=== PATIENT | male | born 1970 | race Caucasian/White ===

== ENCOUNTER → 2021-06-08 13:57 | Outpatient (CLI) | payer MEDICAID, SELFPAY ==
[2021-06-08 14:00] LABS: Adenovirus,PCR Not Detected (NotDetected); Coronavirus 229E Not Detected (NotDetected); Coronavirus NL63 Not Detected (NotDetected); Coronavirus OC43 Not Detected (NotDetected); Coronovirus HKU1,PCR Not Detected (NotDetected); Human Metapneumovirus Not Detected (NotDetected); Influenza A, PCR Not Detected (NotDetected); Influenza AH1, 2009 Not Detected (NotDetected); Influenza AH1, PCR Not Detected (NotDetected); Influenza AH3,PCR Not Detected (NotDetected); Influenza B, PCR Not Detected (NotDetected); Parainfluenza 1, PCR Not Detected (NotDetected); Parainfluenza 2, PCR Not Detected (NotDetected); Rhinovirus/Enterovirus Not Detected (NotDetected)
[2021-06-08 16:38] LABS: Coronavirus 19, PCR Detected (NotDetected); Influenza A, PCR Not Detected (NotDetected); Influenza B, PCR Not Detected (NotDetected)
[2021-06-09 02:12] LABS: Bordetella Pertussis Not Detected (NotDetected); Chlamydophila Pneumoniae, PCR Not Detected (NotDetected); Mycoplasma Pneumoniae, PCR Not Detected (NotDetected); Parainfluenza 3, PCR Not Detected (NotDetected); Parainfluenza 4, PCR Not Detected (NotDetected); Respiratory Syncytial Virus Not Detected (NotDetected)
== END ==
PROVIDERS: Visit Provider Family Medicine
DX: Z20.822 Contact with and (suspected) exposure to COVID-19 (principal); U07.1 COVID-19
CPT/HCPCS: 87486; 87581; 87632; 87798; C9803; U0003; U0005

== ENCOUNTER → 2022-04-02 12:15 | Outpatient (CLI) | payer MEDICAID, SELFPAY | PROVIDERS: PCP Family Medicine; Visit Provider Surgery | DX: U07.1 COVID-19 (principal) | CPT/HCPCS: C9803; U0003; U0005 ==

== ENCOUNTER 2022-04-25 06:27 | Day surgery (SDC) | payer MEDICAID, SELFPAY ==
--- NOTE | 2022-04-25 07:03 | SUR.PREOP ---
Procedure cancelled per Dr Hwang. Pt to f/u with dermatology per his recommendation.
== END 2022-04-25 06:35 | disposition home or self-care (01) ==
LOC: OUTP 06:28
PROVIDERS: PCP Family Medicine; Visit Provider Surgery
PROC: (CPT 11104; principal; 2022-04-25 07:30)
DX: Z53.9 Procedure and treatment not carried out, unspecified reason (principal); D48.5 Neoplasm of uncertain behavior of skin
CPT/HCPCS: 11104

== ENCOUNTER 2024-04-09 09:28 | Outpatient (CLI) | payer MEDICAID, SELFPAY ==
[2024-04-09 18:34] LABS: Basophils # 0.1 K/mm3 (0-0.2); Basophils % 0.8 % (0.1-2.0); Eosinophils # 0.1 K/mm3 (0.0-0.4); Eosinophils % 1.5 % (0.1-12.0); Hematocrit 53.8 % (42.0-52.0); Hemoglobin 17.6 g/dL (14.1-18.0); Mean Corpuscular HGB Conc 32.7 g/dL (31.8-35.4); Mean Corpuscular Hemoglobin 31.3 pg (27.0-31.2); Mean Corpuscular Volume 95.8 fl (80-94); Mean Platelet Volume 10.3 fl (7.4-10.4); Monocytes # 0.4 K/mm3 (0.1-1.0); Monocytes % 6.5 % (1.7-9.3); Neutrophils # 3.4 K/mm3 (1.8-7.8); Neutrophils % 57.3 % (37.0-80.0); Platelet Count 228 K/mm3 (142-424); Red Blood Count 5.61 M/mm3 (4.60-6.20); White Blood Count 5.9 K/mm3 (4.8-10.8)
[2024-04-09 20:48] LABS: Alanine Aminotransferase 24 U/L (12-78); Albumin Level 4.2 g/dl (3.5-5.0); Albumin/Globulin Ratio 1.3 (1.1-1.8); Alkaline Phosphatase 95 U/L (38-126); Anion Gap 10.2 mEq/L (5-15); Aspartate Amino Transferase 24 U/L (17-59); Bilirubin,Total 0.5 mg/dl (0.2-1.3); Blood Urea Nitrogen 20 mg/dl (9-20); Calcium 9.6 mg/dl (8.4-10.2); Carbon Dioxide 26 mmol/L (22.0-30.0); Chloride 108 mmol/L (98-107); Chol/HDL Ratio 8.4 (1-3.5); Cholesterol 268 mg/dl (140-200); Estimated Glomerular Filt Rate 77 ml/min (>60); GFR (African American) 94 ML/MIN (>60); Globulin 3.2 g/dL (1.3-3.2); Glucose 91 mg/dl (74-100); HDL Cholesterol 32 mg/dl (40-60); Potassium 5.2 mmoL/L (3.5-5.1); Sodium 139 mmol/L (136-145); Total Protein,Serum 7.4 g/dl (6.3-8.2); Triglycerides 374 mg/dl (30-150); VLDL Cholesterol 75 mg/dL (0-40)
[2024-04-09 20:59] LABS: Direct LDL Cholesterol 127.14 mg/dL (100-129)
[2024-04-09 21:20] LABS: Prostate Specific Ag Screen 1.1 ng/ml (0.0-4.0)
== END 2024-04-09 23:59 | disposition home or self-care (01) ==
LOC: LAB.DROPOF 04-10 09:07
PROVIDERS: PCP Family Medicine; Visit Provider Family Medicine
DX: M54.9 Dorsalgia, unspecified (principal); G89.29 Other chronic pain
CPT/HCPCS: 80053; 80061; 85025; G0103

== ENCOUNTER 2024-11-02 10:09 | Outpatient (CLI) | payer MEDICAID, SELFPAY ==
[2024-11-02 20:20] LABS: Basophils % 0.6 % (0.1-2.0); Eosinophils # 0.1 K/mm3 (0.0-0.4); Eosinophils % 1.3 % (0.1-12.0); Hematocrit 47.6 % (42.0-52.0); Hemoglobin 16.1 g/dL (14.1-18.0); Lymphocytes # 1.8 K/mm3 (0.7-4.5); Lymphocytes % 29.1 % (10-50); Mean Corpuscular HGB Conc 33.8 g/dL (31.8-35.4); Mean Corpuscular Hemoglobin 29.8 pg (27.0-31.2); Mean Platelet Volume 11.5 fl (7.4-10.4); Monocytes # 0.4 K/mm3 (0.1-1.0); Monocytes % 7.1 % (1.7-9.3); Neutrophils # 3.8 K/mm3 (1.8-7.8); Neutrophils % 61.6 % (37.0-80.0); Platelet Count 262 K/mm3 (142-424); Red Blood Count 5.41 M/mm3 (4.60-6.20); Red Cell Distribution Width 12.5 % (11.5-17.5); White Blood Count 6.2 K/mm3 (4.8-10.8)
[2024-11-02 21:07] LABS: Albumin Level 4.5 g/dl (3.5-5.0); Chloride 105 mmol/L (98-107); Sodium 139 mmol/L (136-145)
[2024-11-02 21:08] LABS: Potassium 4.3 mmoL/L (3.5-5.1)
[2024-11-02 21:10] LABS: Alanine Aminotransferase 34 U/L (12-78); Albumin/Globulin Ratio 1.9 (1.1-1.8); Alkaline Phosphatase 107 U/L (38-126); Anion Gap 15.3 mEq/L (5-15); Aspartate Amino Transferase 29 U/L (17-59); Bilirubin,Total 0.4 mg/dl (0.2-1.3); Blood Urea Nitrogen 18 mg/dl (9-20); Carbon Dioxide 23 mmol/L (22.0-30.0); Estimated Glomerular Filt Rate 77 ml/min (>60); GFR (African American) 94 ML/MIN (>60); Globulin 2.4 g/dL (1.3-3.2); Total Protein,Serum 6.9 g/dl (6.3-8.2)
[2024-11-02 21:11] LABS: Calcium 9.6 mg/dl (8.4-10.2); Glucose 111 mg/dl (74-100)
[2024-11-02 23:22] LABS: Hemoglobin A1C 5.5 % (4.0-6.0)
== END 2024-11-02 23:59 | disposition home or self-care (01) ==
LOC: LAB.DROPOF 11-03 10:09
PROVIDERS: PCP Nurse Practitioner; Visit Provider Nurse Practitioner
DX: L97.509 Non-pressure chronic ulcer of other part of unspecified foot with unspecified severity (principal); L08.9 Local infection of the skin and subcutaneous tissue, unspecified
CPT/HCPCS: 80053; 83036; 85025

== ENCOUNTER 2024-11-04 12:08 | Outpatient (CLI) | payer MEDICAID, SELFPAY ==
--- NOTE | 2024-11-04 12:11 | XR_ITS ---
FINAL REPORT CLINICAL HISTORY: ulcer of foot FINDINGS: LEFT FOOT Three views were obtained. There is no fracture or dislocation. The joint spaces appear normal. No soft tissue abnormality is identified. IMPRESSION: No acute process. Reviewed, Interpreted and Dictated by Krishna Jc MD Transcribed by Megan Nunez Authenticated and [facility]
--- NOTE | 2024-11-04 12:11 | XR_ITS ---
FINAL REPORT CLINICAL HISTORY: foot pain FINDINGS: RIGHT FOOT Three views were obtained. There is no fracture or dislocation. The joint spaces appear normal. No soft tissue abnormality is identified. IMPRESSION: No acute process. Reviewed, Interpreted and Dictated by Krishna Jc MD Transcribed by Megan Nunez Authenticated and [facility]
== END 2024-11-04 23:59 | disposition home or self-care (01) ==
LOC: RAD 12:09
PROVIDERS: PCP Family Medicine; Visit Provider Nurse Practitioner
DX: M79.671 Pain in right foot (principal); M79.672 Pain in left foot; L97.529 Non-pressure chronic ulcer of other part of left foot with unspecified severity
CPT/HCPCS: 73630

== ENCOUNTER 2024-11-10 09:27 | Outpatient (CLI) | payer MEDICAID, SELFPAY ==
--- NOTE | 2024-11-10 09:33 | US_ITS ---
FINAL REPORT CLINICAL HISTORY: Decreased Pedal Pulses, ulcer on R great toe, claudication COMPARISON: None FINDINGS: ANKLE-BRACHIAL PRESSURE INDICES Pressure indices are as follows: RIGHT LOWER EXTREMITY: Ankle-brachial pressure index: 1.0 Comments: Normal LEFT LOWER EXTREMITY: Ankle-brachial pressure index: 1.0 Comments: Normal CONCLUSION: No evidence of significant obstructive peripheral vascular disease of the lower extremities Reviewed, Interpreted and Dictated by Gerry Avina MD Transcribed by Kylah Washburn Authenticated and . [facility]
== END 2024-11-10 23:59 | disposition home or self-care (01) ==
LOC: RT 09:28
PROVIDERS: PCP Family Medicine; Visit Provider Nurse Practitioner
DX: R09.89 Other specified symptoms and signs involving the circulatory and respiratory systems (principal)
CPT/HCPCS: 93923

== ENCOUNTER 2024-11-17 09:27 | Outpatient (CLI) | payer MEDICAID, SELFPAY ==
[2024-11-17 19:37] LABS: Iron 106 ug/dL (49-181)
[2024-11-17 20:08] LABS: Total Iron Binding Capacity 344 ug/dL (261-462)
[2024-11-17 20:14] LABS: Ferritin 72.3 ng/ml (17.9-464)
[2024-11-17 21:10] LABS: Thyroid Stimulating Hormone 0.76 uIU/mL (0.465-4.68)
[2024-11-17 21:29] LABS: Vitamin B12 270 pg/mL (239-931)
[2024-11-17 21:45] LABS: Folate 9.98 ng/mL
== END 2024-11-17 23:59 | disposition home or self-care (01) ==
LOC: LAB.DROPOF 11-18 10:15
PROVIDERS: PCP Family Medicine; Visit Provider Family Medicine
DX: R20.0 Anesthesia of skin (principal); R20.2 Paresthesia of skin
CPT/HCPCS: 82607; 82728; 82746; 83540; 83550; 84443

== ENCOUNTER 2024-12-09 07:08 | Outpatient (CLI) | payer MEDICAID, SELFPAY ==
--- NOTE | 2024-12-09 07:11 | XR_ITS ---
FINAL REPORT CLINICAL HISTORY: Shortness of breath, history of COVID COMPARISON: None FINDINGS: No acute pulmonary density is evident. There is evidence of old calcified granulomatous disease. There is no evidence of effusion or other pleural disease. The mediastinum has a normal appearance. There are age-indeterminate thoracic compression fractures of T12 and T5. The cardiac silhouette is unremarkable. IMPRESSION: No acute lung disease. Age-indeterminate thoracic compression fractures. If further characterization is needed, recommend MRI. Reviewed, Interpreted and Dictated by Krishna Jc MD Transcribed by Tori Lee Authenticated and [facility]
[2024-12-09 07:31] LABS: Blood Urea Nitrogen 16 mg/dl (9-20); Estimated Glomerular Filt Rate 87 ml/min (>60); GFR (African American) 106 ML/MIN (>60)
[2024-12-09] MEDS: IOPAMIDOL-370 (76%);100ML BOTTLE 120 ML IV (08:22)
[2024-12-09] MEDS: SODIUM CHLORIDE 0.9% 10ML SYR (RAD ONLY) 10 ML IV (08:22)
[2024-12-09] MEDS: 0.9 % SODIUM CHLORIDE 50 ML VIAL 100 ML IV (08:22)
--- NOTE | 2024-12-09 08:45 | CT_ITS ---
FINAL REPORT CLINICAL HISTORY: abnl SLIME COMPARISON: None FINDINGS: CT ABDOMEN, CT PELVIS, CTA ABDOMEN, CTA PELVIS AND CTA LOWER EXTREMITY RUNOFF COMPARISON: None TECHNIQUE: Thin section axial CT with IV contrast supplemented with 3D MIP reconstruction under CT Angiogram protocol This study was performed with techniques to keep radiation doses as low as reasonably achievable, (ALARA). Individualized dose reduction techniques using automated exposure control or adjustment of mA and/or kV according to the patient's size were employed. FINDINGS: CT ABDOMEN AND PELVIS: There is mild fatty infiltration of the liver. The gallbladder is unremarkable. The remaining solid organs are normal. The bowel is unremarkable. In the pelvis, there is no focal mass or free fluid. The appendix is unremarkable in appearance. The bladder and prostate are normal. CT ANGIOGRAM ABDOMEN AND PELVIS: The aorta and iliac vessels are unremarkable in appearance. The renal arteries are normal. The mesenteric arteries are unremarkable as well. CTA RIGHT LOWER EXTREMITY: There is no focal abnormality of the femoral or popliteal arteries. There is three-vessel runoff in the right lower extremity, with the dominant runoff vessel of the peroneal artery. CTA LEFT LOWER EXTREMITY: There is no focal abnormality of the femoral or popliteal arteries. There is three-vessel runoff in the left lower extremity, with the dominant runoff vessel of the anterior tibial artery. IMPRESSION: Mild fatty infiltration of the liver. Otherwise, unremarkable CT of the upper abdomen and pelvis. Bilateral three-vessel runoff without evidence of significant stenosis in the abdominal, pelvic, or lower extremity arterial system. This study was performed using automated techniques to achieve radiation exposure as low as reasonably achievable Reviewed, Interpreted and Dictated by Krishna Jc MD Transcribed by Kylah Washburn Authenticated and [facility]
== END 2024-12-09 23:59 | disposition home or self-care (01) ==
PROVIDERS: PCP Family Medicine; Visit Provider Physician Assistant
DX: I73.9 Peripheral vascular disease, unspecified (principal); R06.09 Other forms of dyspnea; R68.89 Other general symptoms and signs; R20.0 Anesthesia of skin; R20.2 Paresthesia of skin; U07.1 COVID-19
CPT/HCPCS: 36415; 71046; 75635; 82565; 84520; Q9967

== ENCOUNTER 2024-12-15 12:15 | Outpatient (CLI) | payer MEDICAID, SELFPAY ==
--- NOTE | 2024-12-15 12:55 | CA_ITS ---
APPROVED REPORT EXAM: Comprehensive 2D, Doppler, and color-flow Echocardiogram Firefighting Equipment Specialist: Rosa Isela Ulrich CRT Ht: 5 ft 6 in Wt: 205lbs BSA: 2.02 BP: 150/92 mmHg Indications: Shortness of Breath, abnormal SLIME 2D Dimensions LA Volume 28.80 mL LA Volume Index 13.90 mL/m2 (M/F) 16-34 M-Mode Dimensions RVDd 2.68 cm (0.9-2.6) LA Diam 3.25 cm (1.9-4.0) LVDd 4.93 cm (3.5-5.7) LVDs 3.31 cm (3.5-5.7) IVSd 1.16 cm (0.6-1.1) PWd 0.73 cm (0.6-1.1) EF (Teich) 61.10% FS 32.90% EDV (Teich) 114.40 mL ESV (Teich) 44.50 mL LV Diastology E Decel Time 150 (160-240 msec) E/A Ratio 1.07 MED A' 8.40 cm/s LAT A' 13.30 cm/s Aortic Valve AO Peak GR. 6.10 mmHg Mitral Valve MV E Max Lino. 72.0 (40-130 cm/s) MV A Velocity 67.0 (40-130 cm/s) E/A Ratio 1.07 MV PHT 44.0 ms Pulmonary Valve PV Peak Velocity 126.0 (50-150 cm/s) Tricuspid Valve TR P. Velocity 221.00 cm/s RAP Estimate 10.00 mmHg RVSP 29.60 mmHg Left Ventricle The left ventricle is normal size. The left ventricular systolic function is normal. The left ventricular ejection fraction is within the normal range. The left ventricular systolic function is normal. The left ventricular ejection fraction is within the normal range. There is increased overall thickness. There is normal LV segmental wall motion. The left ventricular diastolic function is normal. LVEF is 55%. Right Ventricle The right ventricle is normal size. The right ventricular systolic function is normal. Atria The left atrium size is normal. The right atrium size is normal. There is no Doppler evidence of interatrial shunt. Aortic Valve Aortic valve is mildly thickened. There is no aortic valvular stenosis. No aortic regurgitation is present. Mitral Valve The mitral valve is normal in structure. No evidence of mitral valve stenosis. Trace mitral regurgitation. Tricuspid Valve Tricuspid valve is grossly normal in structure and function. Trace tricuspid regurgitation. There is insufficient TR jet to estimate RVSP. Pulmonic Valve The pulmonary valve is normal in structure. Trace pulmonic regurgitation. Great Vessels The aortic root is normal in size. IVC is normal in size and collapses >50% with inspiration. Pericardium There is no pericardial effusion. Other Information Study Quality: Fair Conclusion Normal biventricular systolic function. No significant valvular stenosis or regurgitation. Electronically signed by : Cathryn Noel MD 12/18/2024 20:54:27
[2024-12-15 13:30] VITALS: PULSE 72; PULSE 76
[2024-12-15] MEDS: ALBUTEROL 0.083% 2.5 MG/3 ML NEB IH (13:30)
== END 2024-12-15 23:59 | disposition home or self-care (01) ==
LOC: RT 12:15
PROVIDERS: PCP Family Medicine; Visit Provider Physician Assistant
DX: R06.09 Other forms of dyspnea (principal); I73.9 Peripheral vascular disease, unspecified; R20.0 Anesthesia of skin; R20.2 Paresthesia of skin; U07.1 COVID-19; R68.89 Other general symptoms and signs
CPT/HCPCS: 93306; 94060; 94640; 94726; 94729; J7613

== ENCOUNTER 2024-12-30 06:29 | Outpatient (CLI) | payer MEDICAID, SELFPAY ==
--- NOTE | 2024-12-30 07:00 | CT_ITS ---
FINAL REPORT TECHNIQUE: Axial imaging of the chest was obtained without contrast. Reformatted images were also obtained and reviewed.This study was performed with techniques to keep radiation doses as low as reasonably achievable, (ALARA). Individualized dose reduction technique using automated exposure control or adjustment of mA and/or kV according to the patient's size were employed. CLINICAL HISTORY: dyspnea,hx covid FINDINGS: There are calcified right paratracheal and right hilar lymph nodes. Noncalcified nodules are seen in the superior mediastinum measuring up to 1.5 cm in greatest dimension. Heart size is normal. There is no pericardial or pleural effusion. There are patchy groundglass opacities bilaterally with lingular bilateral scarring. Limited imaging of the upper abdomen is without acute abnormality. IMPRESSION: Groundglass opacities with linear densities likely related to sequela of known recent viral pneumonia. Consider follow-up in 4-6 weeks. Reviewed, Interpreted and Dictated by Gerry Avina MD Transcribed by Maia Lao Authenticated and [facility]
== END 2024-12-30 23:59 | disposition home or self-care (01) ==
LOC: RAD 06:30
PROVIDERS: PCP Family Medicine; Visit Provider Physician Assistant
DX: R09.89 Other specified symptoms and signs involving the circulatory and respiratory systems (principal); R06.09 Other forms of dyspnea; I73.9 Peripheral vascular disease, unspecified; R68.89 Other general symptoms and signs; R20.0 Anesthesia of skin; R20.2 Paresthesia of skin
CPT/HCPCS: 71250

== ENCOUNTER 2025-01-12 09:49 | Outpatient (POV) | payer MEDICAID, SELFPAY ==
[2025-01-12 10:19] VITALS: BP 123/87; PULSE 76; RESP 18; O2SAT 99; BMI 33.0
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
--- NOTE | 2025-01-12 10:21 | XR_ITS ---
FINAL REPORT CLINICAL HISTORY: Neck pain fx about [id number] FINDINGS: CERVICAL SPINE Four views were obtained. There is no acute fracture. The disc spaces are well-preserved. There is minimal anterior osteophyte formation at C5-6. There is no malalignment. IMPRESSION: No acute process. Reviewed, Interpreted and Dictated by Gerry Avina MD Transcribed by Megan Nunez Authenticated and [facility]
--- NOTE | 2025-01-12 10:21 | XR_ITS ---
FINAL REPORT CLINICAL HISTORY: Low back pain, lumbar radiculopathy fx lower back about 2000 FINDINGS: LUMBAR SPINE Three views were obtained. There is no acute fracture. There is a 50% compression deformity of T12 which appears chronic. There is minimal anterior osteophyte formation at L3-4. The disc spaces are well-preserved. There is no malalignment. IMPRESSION: Degenerative and chronic appearing findings. Reviewed, Interpreted and Dictated by Gerry Avina MD Transcribed by Megan Nunez Authenticated and [facility]
== END 2025-01-12 23:59 | disposition home or self-care (01) ==
PROVIDERS: PCP Family Medicine; Visit Provider Nurse Practitioner Family
DX: M54.16 Radiculopathy, lumbar region (principal); M54.50 Low back pain, unspecified; M54.2 Cervicalgia; Z73.89 Other problems related to life management difficulty
CPT/HCPCS: 72040; 72100; 99202; G0463

== ENCOUNTER 2025-02-08 13:33 | Day surgery (SDC) | payer MEDICAID, SELFPAY ==
[2025-02-08 13:48] VITALS: BP 137/95; PULSE 87; RESP 16; O2SAT 98; BMI 33.9
[2025-02-08 14:01] VITALS: BP 165/100; PULSE 85; RESP 18; O2SAT 97
[2025-02-08] MEDS: DEXAMETHASONE 10MG/ML 1ML VIAL 10 MG (14:01)
[2025-02-08 14:03] VITALS: BP 165/100; PULSE 71; RESP 18; O2SAT 97
[2025-02-08 14:08] VITALS: BP 133/94; PULSE 83; RESP 16; O2SAT 99
--- NOTE | 2025-02-08 14:40 | EXP.PAIN.PRO ---
Procedure Date: 02/08/25 Time: 14:00 Anesthesiologist:: Nabeel Lemon CRNA Complications:: None Pre-procedure Diagnosis:: Degenerative disc lumbar spine multilevels. Lumbar radiculopathy. Post-procedure Diagnosis:: Same. Indications for Procedure:: Patient is a very pleasant 55-year-old male who comes our clinic today for lumbar epidural steroid injection. Patient describes low lumbar back pain as constant, dull, aching. Patient also reports bilateral hip and leg radicular symptoms. He rates his pain 7/10. Procedure Details:: Procedure: Lumbar epidural steroid injection under fluoroscopy Informed consent was obtained and the risks and benefits of the procedure were explained to the patient. The patient was taken to the procedure room and noninvasive monitors placed, including noninvasive blood pressure cuff and pulse oximeter. The back was viewed using C-arm Fluoroscopy and prepped using Chloraprep as a cleansing solution and the L3-4 interspace was palpated. Skin and subcutaneous tissues were anesthetized using lidocaine 1.5% and a 25-gauge needle. After this, an 18-gauge Touhy epidural needle was placed into the L3-4 interspace and advanced using fluoroscopic guidance and loss of resistance to air until the epidural space was encountered. After confirmation of needle placement in the epidural space, with dye, a solution containing normal saline, 3 mL and Depo-Medrol 80 mg were incrementally injected into the lumbar epidural space. The patient tolerated the procedure well with no complications. The patient was observed in the Pain Clinic and then discharged home neurologically intact. Plan and Disposition:: Patient was discharged without incident.
== END 2025-02-08 14:08 | disposition home or self-care (01) ==
LOC: SC.PAINP 13:34
PROVIDERS: PCP Family Medicine; Visit Provider Nurse Anesthetist, Certified Registered
DX: M51.16 Intervertebral disc disorders with radiculopathy, lumbar region (principal); Z79.899 Other long term (current) drug therapy
CPT/HCPCS: 64483; J1100

== ENCOUNTER 2025-02-24 14:15 | Outpatient (POV) | payer MEDICAID, SELFPAY ==
--- OUTSIDE RECORDS SUMMARY | 2025-02-24 14:20 | XMS_ITS | Clinical Summary ---
Author Organization [facility] Address [facility] [place] [id number] Care Team Providers Care Scoreboard Operator Name Role Phone Usama Yan MD Primary Care Provider [phone] Allergies No known active allergies Medications methocarbamol (Robaxin) 500 MG tablet Take 1 tablet (500 mg total) by mouth 4 (four) times a day if needed for muscle spasms for up to 16 doses. 16 tablet 04/18/2021 Active Immunizations Immunization Administration Dates Next Due Tdap 04/17/2021(Deferred: Other - pt received tdap from OSH) Social History Tobacco Use Types Packs/Day Years Used Date Smoking Tobacco: Never Alcohol Use Standard Drinks/Week Comments Never 0 (1 standard drink = 0.6 oz pur e alcohol) Sex and Gender Information Value Date Recorded Sex Assigned at Not on file Legal Sex Male 7:57 PM EDT Gender Identity Not on file Sexual Orientation Not on file Last Filed Vital Signs Vital Sign Reading Time Taken Comments Blood Pressure 132/98 04/18/2021 7:30 AM EDT Pulse 75 04/18/2021 7:30 AM EDT Temperature 36.7 C (98 F) 04/18/2021 7:30 AM EDT Respiratory Rate 20 04/18/2021 7:30 AM EDT Oxygen Saturation 98% 04/18/2021 7:30 AM EDT Inhaled Oxygen Concentration - - Weight 90.2 kg (198 lb 13.7 oz) 021 10:18 PM EDT Height - - Body Mass Index - - Plan of Treatment Health Maintenance Due Date Last Done Comments [facility]-Depression Screening 1968 [facility]-/Child/Adol SDOH Screenings 1970 [facility]- SDOH Screenings 02/07/1986 [facility]-Adult SDOH Screenings 02/07/1986 [facility]-DTaP,Tdap,and Td Vaccine s (1 - Tdap) 02/07/1987 [facility]-Hepatitis B Vaccines (1 of 3 - 19+ 3-dose series) 02/07/1987 CT Colonography 02/07/2013 Colonoscopy 02/07/2013 FIT-DNA 02/07/2013 FIT 02/07/2013 FOBT 02/07/2013 Sigmoidoscopy 02/07/2013 [facility]-Colorectal Cancer Screening 02/07/2013 [facility]-Pneumococcal Vaccine: 50 + Years (1 of 1 - PCV) 02/07/2018 [facility]-Zoster Vaccines (1 of 2) 02/07/2018 [id number] Vaccine (1 - 20 24-25 season) 2024 [facility]-Influenza Vaccine (Seaso n Ended) 2025 HPV Vaccines Aged Out No longer eligi ble based on patient's age to complete this topic [facility]-HIB Vaccines Aged Out No longer e ligible based on patient's age to complete this topic [facility]-Hepatitis A Vaccines Aged Out No longer eligible based on patient's age to complete this topic [facility]-IPV Vaccines Aged Out No longer e ligible based on patient's age to complete this topic [facility]-Rotavirus Vaccines Aged Out No lo nger eligible based on patient's age to complete this topic Insurance [employer] Care Teams Scoreboard Operator Relationship Specialty Start Date End Date Usama Yan MD [facility] - General 04/17/21
--- OUTSIDE RECORDS SUMMARY | 2025-02-24 14:20 | XMS_ITS | Clinical Summary ---
Author Organization [facility] Address [address] [facility] [place] [address] Phone Care Team Providers Care Home Delivery Driver Name Role Phone Usama Yan MD Primary Care Provider [phone] Allergies No known active allergies Medications cyclobenzaprine (FLEXERIL) 10 mg Oral Tablet 07/02/2022 Active fluticasone propionate (CUTIVATE) 0.05 % Top Cream 05/09/2022 Active methocarbamoL (ROBAXIN) 500 mg Oral Tablet Take 500 mg by mouth. 04/18/2021 Active naproxen (NAPROSYN) 500 mg Oral Tablet 07/02/2022 Acti ve traMADoL (ULTRAM) 50 mg Oral Tablet 06/13/2022 Active Active Problems No known active problems Surgical History Surgery Date Site/Laterality Comments COLONOSCOPY Social History Tobacco Use Types Packs/Day Years Used Date Smoking Tobacco: Never Smokeless Tobacco: Never Tobacco Cessation:Counseling Given: Not Answered Alcohol Use Standard Drinks/Week Comments Never 0 (1 standard drink = 0.6 oz pur e alcohol) Sex and Gender Information Value Date Recorded Sex Assigned at Not on file Legal Sex Male 8:51 AM EDT Gender Identity Not on file Sexual Orientation Not on file Obstetrics History Last Filed Vital Signs Vital Sign Reading Time Taken Comments Blood Pressure 139/90 07/23/2022 10:53 AM EST Pulse 67 07/23/2022 10:53 AM EST Temperature 36.5 C (97.7 F) 07/23/2022 7:58 AM EST Respiratory Rate 18 07/23/2022 10:53 AM EST Oxygen Saturation 100% 07/23/2022 10:53 AM EST Inhaled Oxygen Concentration - - Weight 87.5 kg (193 lb) 07/23/2022 7:58 AM EST Height 167.6 cm (5' 6 ) 07/23/2022 7:58 AM EST Body Mass Index 31.15 07/23/2022 7:58 AM EST Plan of Treatment Health Maintenance Due Date Last Done Comments Annual Wellness Exam 02/07/1971 DTaP/TDaP/Td (1 - Tdap) 02/07/1987 Hepatitis B Vaccine (1 of 3 - 19+ 3-dose series) 02/07/1987 Cologuard 02/07/2013 FIT 02/07/2013 Sigmoidoscopy 02/07/2013 Virtual Colonography 02/07/2013 Pneumococcal Vaccine 50+ (1 of 1 - PCV) 02/07/2018 Zoster (1 of 2) 02/07/2018 COVID-19 Vaccine ( - 2023-2 5 season) 2024 Influenza Vaccine (Season Ended) 2025 Colon Cancer Screening 07/23/2032 Colonoscopy 07/23/2032 07/23/2022 Meningococcal B Vaccine Aged Out No l onger eligible based on patient's age to complete this topic Procedures Procedure Name Priority Date/Time Associated Diagnosis Comments [facility] COLONOSCOPY Routine 07/23/2022 8:40 AM EST Special screening for malignant neoplasms, colon from Last 3 Months or Most Recently Relevant to Health Maintenance Results * [facility] COLONOSCOPY (07/23/2022 8:40 AM EST) 07/23/2022 8:40 AM EST Impressions [facility] - 07/23/2022 10:38 AM EST Plan: This section is an excerpt of the full report. us Sam Lara MD GI PROCEDURE ORDERABLES Final Result [facility] [address] [place] [address] from Last 3 Months or Most Recently Relevant to Health Maintenance Insurance [facility] [id number] MDR Care Teams Home Delivery Driver Relationship Specialty Start Date End Date Usama Yan MD [address] [place] [address] PCP - General Family Medicine 07/23/22
[2025-02-24 14:41] VITALS: BP 127/85; PULSE 82; RESP 14; O2SAT 95; BMI 33.9
--- NOTE | 2025-02-24 14:59 | A.OFFVIS_ITS ---
[facility] Disclaimer: The information contained in this section may have been updated after the patient was seen, as this information can be updated by other users. Medical History Ulcer of great toe Surgical History H/O colonoscopy Family History Other Unknown family medical history Social History Smoking Status: Never smoker alcohol intake: former substance use type: denies use current occupational status: other Travel in the last 8 weeks?: None PM Subjective & Objective Subjective Subjective:: Patient is a pleasant 55-year-old male who presents today for follow-up of his lumbar epidural steroid injection L3-L4 on 02/08/2025. Today he rates his pain an 8 out of 10. He denies any new trauma or injury. Patient does state that he is still having the chronic low back pain. He states it is into primarily the left hip and goes into the upper thigh. He does state it is worse with prolonged sitting or standing on concrete. He states it is pretty much constant and does interfere with his ability perform activities of daily living such as cooking and cleaning. Patient states he really did not notice any additional improvement following this injection. Patient is interested in additional injections if possible. He did also get the compounded cream however he states he did not notice a huge amount of improvement. His Aldo has been reviewed and is appropriate. Review of Systems: General: No recent weight changes, no fever, no sleep disturbances Respiratory: No cough, no shortness of air, no recurring pulmonary infections Cardiovascular/peripheral vascular: No chest pain, no palpitations, no edema, no shortness of breath Gastrointestinal: No new onset incontinence, normal bowel movements reported Genitourinary: No new onset incontinence Musculoskeletal: Low back pain, left hip pain Psychiatric: [Normal mood/affect] Neurological: [Denies weakness in extremities], [denies balance issues] Pain at rest (0-10 scale): 8 Objective Objective:: Physical Exam: General: Alert and oriented x3, no acute distress, pleasant and cooperative Lungs: Respirations even and unlabored, symmetrical chest expansion Eyes: PERRL Musculoskeletal: Flexion and extension of lumbar [spine] somewhat guarded secondary to pain, [antalgic gait noted] point tenderness along left SI with positive left Livier's, Patricia's, Gaenslen's, compression and distraction exam Neurological: Speech clear, no gross sensory deficit Has patient had previous pain injection?: Yes Percent improvement in pain since last injection: Minimal Conservative treatment options previously tried: Home exercise plan Length of treatment: Longer than 12 weeks Meds Home Medications and Allergies Home Medications ?Medication ?Instructions ?Recorded ?Confirmed ?Type cyclobenzaprine 10 mg tablet 10 mg PO HS PRN muscle sp asm #30 04/09/24 02/24/25 Rx tabs naproxen 500 mg tablet 500 mg PO BID PRN pain #60 t abs 04/09/24 02/24/25 Rx lidocaine HCl 4 %-menthol 1 % 1 ea topical DIRECTED Pain 11/23/24 02/24/25 History topical solution roll-on (Nervive Pain Relieving) tramadol 50 mg tablet 50 mg PO TID PRN pain #90 ta bs 02/14/25 02/24/25 Rx New Prescriptions to Start Prescriptions: Allergies Allergy/AdvReac Type Severity Reaction Status Date / Time No Known Allergies Allergy Verified 02/14/25 08:31 Assessment and Plan *Assessment and plan (1) Sacroiliitis: Status: Acute Category: Medical Code(s): M46.1 - Sacroiliitis, not elsewhere classified Plan Patient is experiencing worsening pain along the low back and left hip. They did have limited range of motion of the lumbar spine along with point tenderness along left SI joints and a left bilateral Livier's, Patricia's, Gaenslen's, compression and distraction exam. I did discuss with the patient that I do believe they would benefit from left SI injections. Risk and benefits were discussed with the patient and they would like to proceed forward with this option. Patient has tried and failed conservative therapy including oral medications, heat and ice, topicals, physical therapy and continued at home stretching exercise for longer than 12 weeks. Patient has been experiencing this pain for longer than 3 months. This will be a diagnostic SI injection with less than 1 mL of solution to be injected. If he does get significant improvement we will plan on repeating the injection when his pain does return with the possibility of a SI fusion in future. Patient will be scheduled for left SI injections under fluoroscopy. I did also discuss with the patient that I do believe it would be beneficial to proceed forward with advanced imaging of his low back. We did also discuss the possibility of additional physical therapy coming up. We will see how he does with the SI injection and proceed forward with these options if he does not get significant relief. Patient agrees with this plan of care. I will also order the patient some lidocaine 5% patches. Patient has been instructed to contact the clinic with any concerns before the next appointment. Dr. Peña has reviewed this note and agrees with this plan of care. This note was dictated using voice recognition software and make contain errors or omissions. All injections are used with Lidocaine or Bupivacaine and dexamethasone unless diagnostic in which no steroids are used.
== END 2025-02-24 23:59 | disposition home or self-care (01) ==
LOC: SC.PAIN 14:16
PROVIDERS: PCP Family Medicine; Visit Provider Nurse Practitioner Family
DX: M46.1 Sacroiliitis, not elsewhere classified (principal)
CPT/HCPCS: 99212; G0463

== ENCOUNTER 2025-03-22 08:41 | Day surgery (SDC) | payer MEDICAID, SELFPAY ==
[2025-03-22 09:00] VITALS: BP 139/89; PULSE 77; RESP 18; O2SAT 96; BMI 33.9
[2025-03-22 09:16] VITALS: BP 140/85; PULSE 69; RESP 18; O2SAT 96
[2025-03-22] MEDS: BUPIVACAINE 0.25% 10ML INJ 25 MG IJ (09:16)
[2025-03-22] MEDS: LIDOCAINE 1% 5ML PF VIAL 5 ML (09:16)
--- NOTE | 2025-03-22 09:16 | EXP.PAIN.PRO ---
Procedure Date: 03/22/25 Time: 09:05 Anesthesiologist:: Nabeel Lemon CRNA Complications:: None Pre-procedure Diagnosis:: Left sacroiliitis Post-procedure Diagnosis:: Same Indications for Procedure:: Patient is a pleasant 55-year-old male comes in today for a diagnostic left sacroiliac joint injection of local anesthetic. Patient describes low left lumbar back pain as well as left posterior hip pain. Difficulty with sitting. Difficulty transitioning from sitting to standing. Difficulty with ambulation. He rates his pain 8/10. Procedure Details:: Procedure: Left sacroiliac injection under fluoroscopy Informed consent was obtained and the risk and benefits of the procedure were explained to the patient.~ The patient was taken to the procedure room and noninvasive monitors were placed including noninvasive blood pressure cuff and pulse oximeter.~ The patient was placed prone on the procedure table.~ The~ left hip was cleansed using Betadine as a cleansing solution.~ C-arm fluorosocpy was used to view the left SI joint.~ The skin and subcutaneous tissues were anesthetized using Lidocaine 1.5% and a 25-gauge needle.~ After this, a 22-gauge spinal needle was inserted under fluoroscopic guidance into the inferior aspect of the left SI joint.~ Omnipaque dye was injected and a good spread was seen throughout the joint.~ After this, 3 cc of 1% lidocaine +3 cc of 0.25% Marcaine was injected into the left sacroiliac joint. ~ The patient tolerated the procedure well with no complications.~ The patient was observed in the Pain Clinic for a period of 30-45 minutes, then discharged home neurologically intact.~ Plan and Disposition:: Patient was reevaluated 10 minutes post procedure. He reports significant improvement terms of his overall left low lumbar back pain as well as left posterior hip pain. I witnessed the patient sit and stand multiple times with minimal pain. He is very pleased with the result. Patient was discharged without incident.
[2025-03-22 09:17] VITALS: BP 140/85; PULSE 69; RESP 18; O2SAT 96
[2025-03-22 09:26] VITALS: BP 132/87; PULSE 73; RESP 18; O2SAT 96
== END 2025-03-22 09:26 | disposition home or self-care (01) ==
PROVIDERS: PCP Family Medicine; Visit Provider Nurse Anesthetist, Certified Registered
DX: M46.1 Sacroiliitis, not elsewhere classified (principal); J84.9 Interstitial pulmonary disease, unspecified; Z79.899 Other long term (current) drug therapy
CPT/HCPCS: 27096; G0260; J0665; J2003

== ENCOUNTER 2025-03-31 09:23 | Outpatient (POV) | payer MEDICAID, SELFPAY ==
--- OUTSIDE RECORDS SUMMARY | 2025-03-31 09:26 | XMS_ITS | Clinical Summary ---
Author Organization [facility] Address [facility] [place] [id number] Care Team Providers Care Precision Millwright Name Role Phone Usama Yan MD Primary Care Provider [phone] Allergies No known active allergies Medications methocarbamol [...] 02/07/2018 UKY-Zoster Vaccines (1 of 2) 02/07/2018 [id number] Vaccine (1 - 20 24-25 season) 2024 UKY-Influenza Vaccine (#1) 2025 HPV Vaccines Aged Out No longer [...] this topic Insurance [employer] Care Teams Precision Millwright Relationship Specialty Start Date End Date Usama Yan MD [facility] - General 04/17/21
--- OUTSIDE RECORDS SUMMARY | 2025-03-31 09:26 | XMS_ITS | Clinical Summary ---
Author Organization [facility] Address [address] [facility] [address] Phone Care Team Providers Care Beauty Shop Manager Name Role Phone Usama Yan MD Primary Care Provider [phone] Allergies No known active allergies Medications cyclobenzaprine [...] - 2023-2 5 season) 2024 Influenza Vaccine (#1) 2025 Colon Cancer Screening 07/23/2032 Colonoscopy 07/23/2032 [...] AM EST) 07/23/2022 8:40 AM EST Impressions [facility] - 07/23/2022 10:38 AM EST Plan: This section is an excerpt of the full report. us Sam Lara MD GI PROCEDURE ORDERABLES Final Result [facility] [address] [place] [address] from Last 3 Months or Most Recently Relevant to Health Maintenance Insurance [facility] [id number] MDR Care Teams Beauty Shop Manager Relationship Specialty Start Date End Date Usama Yan MD PCP - General Family Medicine 07/23/22
--- NOTE | 2025-03-31 10:13 | EXP.PAIN.SOA ---
[facility] Disclaimer: The information contained in this section may have been updated after the patient was seen, as this information can be updated by other users. Medical History Ulcer of great toe Surgical History H/O colonoscopy Family History Other Unknown family medical history Social History Smoking Status: Never smoker alcohol intake: former substance use type: denies use current occupational status: other Travel in the last 8 weeks?: None PM Subjective & Objective Subjective Subjective:: Patient is a pleasant 55-year-old male who presents today for follow-up of his left diagnostic SI injection on 03/22/2025. Today he rates his pain an 8 out of 10. Patient does state that in the first couple of hours he would at least give 80% relief however does state that it has dropped down significantly already. He does state however that overall he has noticed improvement in that location but did start to notice increased pain that was higher up. Patient denies any radiating symptoms into his legs and does feel like his pain is worse with certain movements such as bending, twisting or lifting. Patient would like to see about trying something for this pain is that pain is interfering with his ability to perform activities of daily living such as cooking and cleaning. Patient is prescribed compounded cream. His Aldo has been reviewed and is appropriate. Review of Systems: General: No recent weight changes, no fever, no sleep disturbances Respiratory: No cough, no shortness of air, no recurring pulmonary infections Cardiovascular/peripheral vascular: No chest pain, no palpitations, no edema, no shortness of breath Gastrointestinal: No new onset incontinence, normal bowel movements reported Genitourinary: No new onset incontinence Musculoskeletal: Low back pain Psychiatric: [Normal mood/affect] Neurological: [Denies weakness in extremities], [denies balance issues] Pain at rest (0-10 scale): 8 Objective Objective:: Physical Exam: General: Alert and oriented x3, no acute distress, pleasant and cooperative Lungs: Respirations even and unlabored, symmetrical chest expansion Eyes: PERRL Musculoskeletal: Flexion and extension of lumbar [spine] somewhat guarded secondary to pain, [antalgic gait noted] positive Kemps test Neurological: Speech clear, no gross sensory deficit Has patient had previous pain injection?: Yes Percent improvement in pain since last injection: 80% Conservative treatment options previously tried: Home exercise plan Length of treatment: Longer than 12 weeks Meds Home Medications and Allergies Home Medications ?Medication ?Instructions ?Recorded ?Confirmed ?Type lidocaine HCl 4 %-menthol 1 % 1 ea topical DIRECTED Pain 11/23/24 03/23/25 History topical solution roll-on (Nervive Pain Relieving) cyclobenzaprine 10 mg tablet 10 mg PO HS PRN muscle spasm #30 03/23/25 03/23/25 Rx tabs naproxen 500 mg tablet 500 mg PO BID PRN pain #60 tabs 03/23/25 03/23/25 Rx tramadol 50 mg tablet 50 mg PO TID PRN pain #90 tabs 03/23/25 03/23/25 Rx New Prescriptions to Start Prescriptions: Allergies Allergy/AdvReac Type Severity Reaction Status Date / Time No Known Allergies Allergy Verified 03/23/25 08:19 Assessment and Plan *Assessment and plan (1) Lumbar facet arthropathy: Status: Acute Category: Medical Code(s): M47.816 - Spondylosis without myelopathy or radiculopathy, lumbar region Plan Patient is experiencing significant pain in his low back that is worse with bending, twisting or lifting. Patient did have limited range of motion of his lumbar spine with a positive Kemps test during today's visit. I did discuss with the patient that I do believe he would benefit from a lumbar medial branch block. Risk and benefits were discussed with the patient and he would like to proceed forward with this plan of care. Patient has tried and failed conservative therapy including oral medications, heat and ice, topicals, at home stretching exercise for longer than 12 weeks. Patient has been experiencing chronic low back pain for years. Patient was counseled that if he does get significant relief with his first lumbar medial branch block that we will plan on repeating it with the plan to progress forward to a lumbar RFA at a later date. Patient agrees with this plan of care. Patient will be scheduled for his first diagnostic lumbar medial branch block bilaterally L2-L3 and L3-L4 under fluoroscopy. Patient has been instructed to contact the clinic with any concerns before the next appointment. Dr. Peña has reviewed this note and agrees with this plan of care. This note was dictated using voice recognition software and make contain errors or omissions. All injections are used with Lidocaine, Bupivacaine and dexamethasone unless diagnostic in which there is no steroids injected. Occasionally urine drug screen is needed to verify patient's compliance with our office pain contract. This is ordered based off specific treatments related to chronic pain with the potential to abuse certain medications.
[2025-03-31 10:53] VITALS: BP 138/90; PULSE 75; RESP 14; O2SAT 97; BMI 33.9
== END 2025-03-31 23:59 | disposition home or self-care (01) ==
LOC: SC.PAIN 09:24
PROVIDERS: PCP Family Medicine; Visit Provider Nurse Practitioner Family
DX: M47.816 Spondylosis without myelopathy or radiculopathy, lumbar region (principal)
CPT/HCPCS: 99212; G0463

== ENCOUNTER 2025-04-14 14:17 | Outpatient (CLI) | payer MEDICAID, SELFPAY ==
--- OUTSIDE RECORDS SUMMARY | 2025-04-14 14:21 | XMS_ITS | Clinical Summary ---
Author Organization [facility] Address [address] [facility] [place] [address] Phone Care Team Providers Care Purse Maker Name Role Phone Usama Yan MD Primary Care Provider [phone] Allergies No known active allergies Medications cyclobenzaprine [...] AM EST) 07/23/2022 8:40 AM EST Impressions [facility] - 07/23/2022 10:38 AM EST Plan: This section is an excerpt of the full report. us Sam Lara MD GI PROCEDURE ORDERABLES Final Result [facility] [address] [place] [address] from Last 3 Months or Most Recently Relevant to Health Maintenance Insurance [facility] [id number] MDR Care Teams Purse Maker Relationship Specialty Start Date End Date Usama Yan MD PCP - General Family Medicine 07/23/22
--- OUTSIDE RECORDS SUMMARY | 2025-04-14 14:21 | XMS_ITS | Clinical Summary ---
Author Organization [facility] Address [facility] [place] [id number] Care Team Providers Care Dishroom Attendant Name Role Phone Usama Yan MD Primary Care Provider [phone] Allergies No known active allergies Medications methocarbamol [...] 02/07/2018 UKY-Zoster Vaccines (1 of 2) 02/07/2018 [id number] Vaccine (1 - 20 24-25 season) 2024 [...] this topic Insurance [employer] Care Teams Dishroom Attendant Relationship Specialty Start Date End Date Usama Yan MD [facility] - General 04/17/21
[2025-04-14 16:38] LABS: C-Reactive Protein 4.3 mg/L (0-4)
[2025-04-15 14:18] LABS: Antinuclear Antibodies (ANA) Negative (Negative)
== END 2025-04-14 23:59 | disposition home or self-care (01) ==
LOC: LAB 14:18
PROVIDERS: PCP Family Medicine; Visit Provider Internal Medicine Pulmonary Disease
DX: J84.9 Interstitial pulmonary disease, unspecified (principal)
CPT/HCPCS: 36415; 86140; 86200

== ENCOUNTER 2025-05-10 08:37 | Day surgery (SDC) | payer MEDICAID, SELFPAY ==
[2025-05-10 08:50] VITALS: BP 154/96; PULSE 84; RESP 16; O2SAT 96; BMI 32.3
--- NOTE | 2025-05-10 09:14 | EXP.PAIN.PRO ---
Procedure Date: 05/10/25 Time: 09:10 Anesthesiologist:: Ferny Lemon CRNA Complications:: None Pre-procedure Diagnosis:: Disc disease lumbar spine multilevels. Lumbar radiculopathy. Lumbar spondylosis. Multilevel lumbar facet arthropathy. Post-procedure Diagnosis:: Same. Indications for Procedure:: Patient is a pleasant 55-year-old male who comes our clinic today for round 1 of lumbar medial ranch block/facet injection at the bilateral L2-3, L3-4 level. Patient describes low lumbar back pain as constant, dull, aching. He reports difficulty with lumbar flexion, extension, left and right rotation. He rates his pain 7/10. Procedure Details:: Informed consent was obtained and the risk and benefits of the procedure was explained to the patient. Patient was taken to the procedure room where noninvasive monitors were placed, including noninvasive blood pressure cuff as well as pulse oximeter. The area over the lumbar spine was cleansed using chlorhexidine as a cleansing solution. I anesthetized the skin and subcutaneous tissues with 1% Lidocaine. I placed 22-gauge spinal needles into the facet joint/ medial branches of L2-3 and L3-4, bilaterally. Needle placement was confirmed with fluoroscopy. After confirmation of needle placement, each site was injected with 1 mL of 1% lidocaine and 0.25 % Marcaine 1 mL. Patient tolerated the procedure without difficulty. There were no complications. Plan and Disposition:: Patient was discharged without incident.
[2025-05-10] MEDS: BUPIVACAINE 0.25% 10ML INJ 25 MG IJ (09:23)
[2025-05-10] MEDS: LIDOCAINE 1% 5ML PF VIAL 5 ML (09:23)
[2025-05-10 09:24] VITALS: BP 137/94; PULSE 80; RESP 18; O2SAT 97
[2025-05-10 09:28] VITALS: BP 137/94; PULSE 80; RESP 18; O2SAT 97
[2025-05-10 09:33] VITALS: BP 132/93; PULSE 87; RESP 16; O2SAT 99
== END 2025-05-10 09:33 | disposition home or self-care (01) ==
PROVIDERS: PCP Family Medicine; Visit Provider Nurse Anesthetist, Certified Registered
DX: M51.16 Intervertebral disc disorders with radiculopathy, lumbar region (principal); M47.26 Other spondylosis with radiculopathy, lumbar region
CPT/HCPCS: 64493; 64494; J0665; J2003

== ENCOUNTER 2025-05-20 06:44 | Outpatient (CLI) | payer MEDICAID, SELFPAY ==
--- OUTSIDE RECORDS SUMMARY | 2025-05-20 06:47 | XMS_ITS | Clinical Summary ---
Author Organization [facility] Address [address] [facility] [address] Phone Care Team Providers Care Senior Regulatory Affairs Specialist Name Role Phone Usama Yan MD Primary Care Provider [phone] Allergies No known active allergies Medications cyclobenzaprine [...] Zoster (1 of 2) 02/07/2018 COVID-19 Vaccine (1 - 2023-2 5 season) 2025 Influenza Vaccine (#1) 2025 Colon Cancer Screening [...] AM EST) 07/23/2022 8:40 AM EST Impressions [facility] - 07/23/2022 10:38 AM EST Plan: This section is an excerpt of the full report. us Sam Lara MD GI PROCEDURE ORDERABLES Final Result [facility] [address] [place] [address] from Last 3 Months or Most Recently Relevant to Health Maintenance Insurance [facility] [id number] MDR Care Teams Senior Regulatory Affairs Specialist Relationship Specialty Start Date End Date Usama Yan MD PCP - General Family Medicine 07/23/22
--- OUTSIDE RECORDS SUMMARY | 2025-05-20 06:47 | XMS_ITS | Clinical Summary ---
Author Organization [facility] Address [facility] [place] [id number] Care Team Providers Care Commodity Trader Name Role Phone Usama Yan MD Primary Care Provider [phone] Allergies No known active allergies Medications methocarbamol [...] Date Last Done Comments UKY-Depression Screening 1968 UKY-Infant/Child/Adol SDOH Screenings 1968 UKY- SDOH Screenings 02/07/1986 [...] 02/07/2018 UKY-Zoster Vaccines (1 of 2) 02/07/2018 [id number] Vaccine (1 - 20 24-25 season) 2025 UKY-Influenza Vaccine (#1) 2025 HPV Vaccines Aged [...] this topic Insurance [employer] Care Teams Commodity Trader Relationship Specialty Start Date End Date Usama Yan MD [facility] - General 04/17/21
--- NOTE | 2025-05-20 07:30 | CT_ITS ---
FINAL REPORT CLINICAL HISTORY: .ground glass opacities seen on another ct COMPARISON: 12/30/2024 FINDINGS: CT CHEST without contrast COMPARISON: 12/30/2024. TECHNIQUE: Axial CT without contrast. A high-resolution CT was performed, using supine inspiratory and expiratory and prone inspiratory examinations along with multiplanar reconstructions in the sagittal and coronal planes. This study was performed with techniques to keep radiation doses as low as reasonably achievable, (ALARA). Individualized dose reduction techniques using automated exposure control or adjustment of mA and/or kV according to the patient's size were employed. FINDINGS: Diffuse ground glass opacities are present, with persistent curvilinear bands of fibrotic tissue, typical of chronic changes of a prior viral pneumonia. Mild changes of bronchiectasis are present as well. There is no evidence of diffuse interstitial lung disease. No pleural or pericardial effusion is seen . Scattered small mediastinal nodes are present, some partially calcified. IMPRESSION: 1. Extensive ground glass opacities with peripheral curvilinear bands of fibrotic tissue, typical of chronic changes of viral pneumonia. 2. Mild bronchiectasis. 3. No evidence of diffuse interstitial lung disease. This study was performed using automated techniques to achieve radiation exposure as low as reasonably achievable Reviewed, Interpreted and Dictated by Krishna Jc MD Transcribed by Kylah Washburn Authenticated and [facility]
[2025-05-20] MEDS: ALBUTEROL 0.083% 2.5 MG/3 ML NEB IH (07:52)
== END 2025-05-20 23:59 | disposition home or self-care (01) ==
LOC: RAD 06:45
PROVIDERS: PCP Family Medicine; Visit Provider Internal Medicine Pulmonary Disease
DX: J47.9 Bronchiectasis, uncomplicated (principal); R91.8 Other nonspecific abnormal finding of lung field; R94.2 Abnormal results of pulmonary function studies; R91.1 Solitary pulmonary nodule
CPT/HCPCS: 71250; 94060; 94618; 94726; 94729

== ENCOUNTER 2025-07-12 09:44 | Day surgery (SDC) | payer MEDICAID, SELFPAY ==
[2025-07-12 09:51] VITALS: BP 139/90; PULSE 77; RESP 16; O2SAT 97; BMI 33.9
[2025-07-12 09:54] VITALS: BP 139/94; PULSE 78; RESP 18; O2SAT 97
[2025-07-12] MEDS: BUPIVACAINE 0.25% 10ML INJ 25 MG IJ (09:57)
[2025-07-12] MEDS: LIDOCAINE 1% 5ML PF VIAL 5 ML (09:57)
[2025-07-12 09:58] VITALS: BP 139/94; PULSE 78; RESP 18; O2SAT 97
--- NOTE | 2025-07-12 10:02 | EXP.PAIN.PRO ---
Procedure Date: 07/12/25 Time: 09:45 Anesthesiologist:: Ferny Lemon CRNA Complications:: None Pre-procedure Diagnosis:: Degenerative disc lumbar spine multilevels. Lumbar radiculopathy. Lumbar spondylosis. Multilevel. Multilevel lumbar facet arthropathy. Post-procedure Diagnosis:: Same. Indications for Procedure:: Patient is a very pleasant 55-year-old male who comes to our clinic today for round 1 of bilateral lumbar medial branch blocks/facet injections at the L2-3 and L3-4 level. Patient describes low lumbar back pain as constant, dull, aching. He reports having difficulty with lumbar flexion, extension, left and right rotation. He rates his pain 7/10. Procedure Details:: Informed consent was obtained and the risk and benefits of the procedure was explained to the patient. Patient was taken to the procedure room where noninvasive monitors were placed, including noninvasive blood pressure cuff as well as pulse oximeter. The area over the lumbar spine was cleansed using chlorhexidine as a cleansing solution. I anesthetized the skin and subcutaneous tissues with 1% Lidocaine. I placed 22-gauge spinal needles into the facet joint/ medial branches of L2-3, L3-4 bilaterally. Needle placement was confirmed with fluoroscopy. After confirmation of needle placement, each site was injected with 1 mL of 1% lidocaine and 0.25 % Marcaine 1 mL. Patient tolerated the procedure without difficulty. There were no complications. Plan and Disposition:: Patient was discharged without incident.
[2025-07-12 10:03] VITALS: BP 152/88; PULSE 79; RESP 16; O2SAT 99
== END 2025-07-12 10:03 | disposition home or self-care (01) ==
PROVIDERS: PCP Family Medicine; Visit Provider Nurse Anesthetist, Certified Registered
DX: M51.16 Intervertebral disc disorders with radiculopathy, lumbar region (principal); M47.26 Other spondylosis with radiculopathy, lumbar region; Z79.1 Long term (current) use of non-steroidal anti-inflammatories (NSAID); Z79.891 Long term (current) use of opiate analgesic
CPT/HCPCS: 64493; 64494; J0665; J2003